=== PATIENT | female | born 1945 | race American Indian/Alaskan Native ===

== ENCOUNTER 2016-12-27 10:23 | Emergency (ER) | payer MEDICARE, BC ==
[2016-12-27 09:51] VITALS: BMI 32.4
[2016-12-27 09:55] VITALS: O2SAT 99
[~2016-12-27 10:23] MED LIST: Lidocaine 1% Inj (20ml) ONE
[2016-12-27] MEDS ORDERED: TDAP Vaccine 0.5 mL Syr IM ONE (11:01)
[2016-12-27 11:14] VITALS: BP 129/71; PULSE 85; RESP 19; TEMP 98.3
== END 2016-12-27 11:20 | disposition home or self-care (01) ==
LOC: ED 10:23
DX: S01.511A Laceration without foreign body of lip, initial encounter (principal); W18.30XA Fall on same level, unspecified, initial encounter; Y93.89 Activity, other specified; Y92.89 Other specified places as the place of occurrence of the external cause; Z23 Encounter for immunization